=== PATIENT | female | born 2000 | race Two or more races ===

== ENCOUNTER 2023-07-24 14:08 | Inpatient (IN) | payer OTHER ==
[~2023-07-24] VITALS: Ht 160 cm; Wt 68.0 kg
--- NOTE | 2023-07-24 15:45 | NUR ---
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 PTE SE OBSERVA PALIDA Y AL MOMENTO PTE NO REFIERE DOLOR, NI MAREOS. SE BOLIVAR S/V Y SE COLOCA EN OBSERVACION.
[2023-07-24] MEDS ORDERED: 0.9 % SODIUM CHLORIDE 1,000 ML IV SCH ×2 (17:00→23:45)
--- NOTE | 2023-07-24 17:38 | NUR ---
SE ORIENTA PTE SOBRE TX A SEGUIR, EL CUAL REFIERE ENTENDER. SE COLECTAN MUESTRAS Y SE CANALIZA PTE UTILIZANDO MEDIDAS ASEPTICAS. SE ADM. MEDICAMENTOS BRIAN ORDEN MEDICA.
[2023-07-24 17:52] LABS: HEMATOCRIT 23.7 % (36.0-45.00); MEAN CORPUSCULAR HGB CONC 29.6 g/dl (32.0-36.0); RED BLOOD COUNT 4.21 M/uL (4.00-6.00); RED CELL DISTRIBUTION WIDTH 20.1 % (11.5-14.5)
[2023-07-24 18:00] LABS: INR 1.04; PARTIAL THROMBOPLASTIN TIME 26.2 SECONDS (22.0-34.0); PROTHROMBIN TIME 10.9 SECONDS (9.0-11.5)
[2023-07-24 18:04] LABS: ALBUMIN 4.1 gm/dL (3.4-5.0); BILIRUBIN TOTAL 0.35 mg/dL (0.3-1.2); CALCIUM 8.9 mg/dL (8.5-10.1); CREATININE SERUM 0.87 mg/dL (0.55-1.02); GFR 82.19; GLOBULINA 4.3 G/DL (2.4-3.5); POTASSIUM 3.49 mEq/L (3.5-5.1); TOTAL PROTEIN 8.4 gm/dL (6.4-8.2)
[2023-07-24 18:15] LABS: MEAN CELL VOLUME 56.3 fL (80.00-100.00); MEAN CORPUSCULAR HEMOGLOBIN 16.6 pg (27.00-32.0)
[2023-07-24 18:16] LABS: PLATELET COUNT 409 K/uL (150-450)
--- NOTE | 2023-07-24 21:20 | NUR ---
PTE CON ORDEN DE PARA TRANSFUNDIR 3 UNIDADES DE PRBC'S. SE REQUISAN TUBOS PILOTOS LOS CUALES SE ENTREGAN A LABORATORIO. PERSONAL DE LABORATORIO LLAMA A [place] Y NOTIFICAN QUE NO TIENE RECORD. SE COLECTA 2DO TUBO [place] Y SE LLEVA A [place].
[2023-07-24] MEDS ORDERED: ONDANSETRON HCL 4 MG in 0.9 % SODIUM CHLORIDE 50 ML IV PRN (23:45)
[2023-07-24] MEDS ORDERED: DIPHENHYDRAMINE HCL 50 MG/ML VIAL 1ML IV PRN (23:45)
[2023-07-24] MEDS ORDERED: ACETAMINOPHEN 500 MG GEL..CAP PO PRN (23:45)
[2023-07-24] MEDS ORDERED: hydrALAZINE HCL 20 MG VIAL IV PRN (23:45)
[2023-07-24] MEDS ORDERED: FUROsemide 20 MG/2 ML VIAL IV SCH (23:45)
[2023-07-24] MEDS ORDERED: METHYLPREDNISOLONE SOD SUCC 40 MG VIAL IV PRN (23:45)
[2023-07-24] MEDS ORDERED: MORPHINE SULFATE 4 MG/ML CARTRIDGE IV PRN (23:45)
[2023-07-25] MEDS ORDERED: FAMOTIDINE/PF 20 MG in 0.9 % SODIUM CHLORIDE 8 ML IV PUSH SCH (09:00)
[2023-07-25 11:48] LABS: URINE APPEARANCE Clear; URINE BILIRRUBIN Negative (NEGATIVE); URINE COLOR Yellow; URINE LEUKOCYTE Trace; URINE NITRATE Positive; URINE PROTEIN Negative (NEGATIVE); URINE UROBILINOGEN 0.2 E.U./dl
[2023-07-25 11:49] LABS: URINE EPITHELIAL CELLS 17.7 uL (0.0-38.8); URINE WBC 15.8 uL (0.0-23.2)
[2023-07-25 11:54] LABS: HEMATOCRIT 30.3 % (36.0-45.00); PLATELET COUNT 449 K/uL (150-450); RED BLOOD COUNT 4.95 M/uL (4.00-6.00)
[2023-07-25 11:56] LABS: HEMOGLOBIN 9.1 g/dL (12.0-15.00); MEAN CELL VOLUME 61.3 fL (80.00-100.00); MEAN CORPUSCULAR HEMOGLOBIN 18.3 pg (27.00-32.0); RED CELL DISTRIBUTION WIDTH 24.3 % (11.5-14.5)
[2023-07-25 11:57] LABS: ERYTHROCYTE SEDIMENTATION RATE 28 mm/hr
[2023-07-25 12:02] LABS: URINE BACTERIA > 9821.5 uL (0.0-1933); URINE BLOOD TRACE; URINE GLUCOSE 100 MG/DL (NEGATIVE); URINE RBC 0.5 uL (0.0-20.8)
[2023-07-25 12:04] LABS: INR 1.07; PARTIAL THROMBOPLASTIN TIME 26.5 SECONDS (22.0-34.0); PROTHROMBIN TIME 11.2 SECONDS (9.0-11.5)
[2023-07-25 12:28] LABS: ALBUMIN 4.2 gm/dL (3.4-5.0); ALKALINE PHOSPHATASE 90 U/L (50-136); ALT/SGPT 16 U/L (12-78); ANION GAP 11 (10.0-20.0); AST/SGOT 13 U/L (15-37); BILIRUBIN TOTAL 0.56 mg/dL (0.3-1.2); BLOOD UREA NITROGEN 7 mg/dL (7-18); BUN CREA RATIO 9 (7.0-25.0); CALCIUM 9.3 mg/dL (8.5-10.1); CARBON DIOXIDE 23 mEq/L (21-32); CHLORIDE 112 mmol/L (98-107); CHOLESTEROL 137 mg/dL (0-200); CREATININE SERUM 0.79 mg/dL (0.55-1.02); GFR 91.87; GLUCOSE FASTING 163 mg/dL (65-100); HDL 69 mg/dl (40-60); LDL 62 mg/dl (0-130); LIPASE 24 U/L (13-75); OSMOLALITY SERUM 285 MOSM/KG (275-295); POTASSIUM 3.88 mEq/L (3.5-5.1); SODIUM 142 mmol/L (136-145); TOTAL PROTEIN 8.2 gm/dL (6.4-8.2); TRIGLYCERIDES 29 mg/dL (0-150); VLDL 5 (0-39)
[2023-07-25 12:41] LABS: C-REACTIVE PROTEIN < 0.29 MG/DL (0.00-0.29)
[2023-07-25 22:41] LABS: HEMATOCRIT 31.5 % (36.0-45.00); HEMOGLOBIN 9.8 g/dL (12.0-15.00); MEAN CORPUSCULAR HEMOGLOBIN 19.6 pg (27.00-32.0); PLATELET COUNT 410 K/uL (150-450); RED BLOOD COUNT 4.99 M/uL (4.00-6.00)
[2023-07-25 22:46] LABS: MEAN CELL VOLUME 63.2 fL (80.00-100.00); RED CELL DISTRIBUTION WIDTH 28.8 % (11.5-14.5)
[2023-07-26 14:10] LABS: ob NEGATIVE (NEGATIVE)
== END 2023-07-26 13:55 | disposition home or self-care (01) | DRG 812 ==
LOC: ER 14:09 → SEC-K 23:49 → MEDJ 23:49
PROVIDERS: General Practice; ADMIT Internal Medicine; ATTEND Internal Medicine
PROC: 4A12X4Z Monitoring of Cardiac Electrical Activity, External Approach (ICD-10-PCS; 2023-07-24)
PROC: 30233N1 Transfusion of Nonautologous Red Blood Cells into Peripheral Vein, Percutaneous Approach (ICD-10-PCS; principal; 2023-07-25)
DX: D64.89 Other specified anemias (principal)